=== PATIENT | male | born 1965 | race Caucasian/White ===

== ENCOUNTER 2022-11-01 08:38 | Day surgery (SDC) | payer OTHER ==
[~2022-11-01] VITALS: Ht 175.3 cm; Wt 98.8 kg
[2022-11-01] MEDS ORDERED: GABA100 (08:48)
[2022-11-01] MEDS ORDERED: METF500 (08:48)
[2022-11-01] MEDS ORDERED: BUPR75 (08:48)
[2022-11-01] MEDS ORDERED: FLUO10 (08:49)
[2022-11-01] MEDS ORDERED: SUMA5NI (08:50)
[2022-11-01] MEDS ORDERED: ATOR10 (08:50)
[2022-11-01] MEDS ORDERED: Hydrocodone Bita5 GM (08:51)
[2022-11-01] MEDS ORDERED: Cyclobenzaprine5 MG (08:51)
== END 2022-11-01 10:28 | disposition home or self-care (01) ==
LOC: ORSCSDS 08:38
PROVIDERS: Surgery
PROC: 0DJD8ZZ Inspection of Lower Intestinal Tract, Via Natural or Artificial Opening Endoscopic (ICD-10-PCS; principal; 2022-11-01 09:45)
DX: Z12.11 Encounter for screening for malignant neoplasm of colon (principal); Z86.010 Personal history of colon polyps; E11.9 Type 2 diabetes mellitus without complications; F41.8 Other specified anxiety disorders; E78.5 Hyperlipidemia, unspecified; F10.21 Alcohol dependence, in remission; Z87.891 Personal history of nicotine dependence; E66.9 Obesity, unspecified; Z68.33 Body mass index [BMI] 33.0-33.9, adult; Z79.84 Long term (current) use of oral hypoglycemic drugs; Z79.899 Other long term (current) drug therapy
CPT/HCPCS: 82947; J2704; J7120

== ENCOUNTER → 2023-06-03 | Outpatient (CLI) | payer OTHER ==
[~2023-06-03] MED LIST: ATOR10; BUPR75; Cyclobenzaprine5 MG; FLUO10; GABA100; Hydrocodone Bita5 GM; METF500; SUMA5NI
[2023-06-03 16:05] LABS: CHOL/HDL RATIO 3.5; Cholesterol 165 mg/dL (50-200); HDL Cholesterol 47 mg/dL (>39); LDL/HDL RATIO 1.6; Low Density Lipoprotein Chol 77 mg/dL (0-110); Triglycerides 203 mg/dL (30-160); Very Low Density Lipoprot Chol 40 mg/dL (6-32)
== END | disposition home or self-care (01) ==
LOC: LAB 11:14 → LAB SHORT 11:14
PROVIDERS: Student in an Organized Health Care Education/Training Program
DX: E78.5 Hyperlipidemia, unspecified (principal)
CPT/HCPCS: 80061

== ENCOUNTER 2023-11-10 16:54 | Emergency (ER) | payer OTHER ==
[~2023-11-10] VITALS: Ht 175.3 cm; Wt 99.8 kg
[2023-11-10 17:27] VITALS: BP 156/90
== END 2023-11-10 18:38 | disposition home or self-care (01) ==
LOC: ER 16:54
DX: I82.612 Acute embolism and thrombosis of superficial veins of left upper extremity (principal); E11.9 Type 2 diabetes mellitus without complications; Z79.84 Long term (current) use of oral hypoglycemic drugs; Z79.899 Other long term (current) drug therapy
CPT/HCPCS: 93971; 99283-25

== ENCOUNTER → 2024-04-16 | Outpatient (CLI) | payer OTHER ==
[2024-04-16 17:38] LABS: Bun/Creatinine Ratio 17.6 (12.0-20.0); Calcium, Blood 9.5 mg/dL (8.5-10.1); Creatinine, Blood 0.97 mg/dL (0.60-1.20); Potassium, Blood 3.9 mmol/L (3.5-5.5)
== END ==
LOC: LAB SHORT 16:00 → LAB 16:00
DX: E11.69 Type 2 diabetes mellitus with other specified complication (principal); E78.5 Hyperlipidemia, unspecified
CPT/HCPCS: 80048

== ENCOUNTER 2024-07-21 11:00 | Emergency (ER) | payer OTHER ==
[~2024-07-21] VITALS: Ht 175.3 cm; Wt 93.0 kg
[2024-07-21 11:31] VITALS: BP 146/103
[2024-07-21] MEDS ORDERED: NS 1,000 ML IV SCH (11:55)
[2024-07-21] MEDS ORDERED: Ketorolac Tromethamine 15mg Vial IV ONE (11:55)
[2024-07-21] MEDS ORDERED: DiphenhydrAMINE HCl 50 MG/ML 1ML Vial IV ONE (11:55)
[2024-07-21] MEDS ORDERED: Prochlorperazine Edisylate 10 mg Vial IV ONE (11:55)
[2024-07-21 13:01] LABS: Influenza A, PCR NEGATIVE (NEGATIVE); Influenza B, PCR NEGATIVE (NEGATIVE); Resp Syncytial Virus, PCR NEGATIVE (NEGATIVE); SARS-Cov-2 (COVID-19) PCR, MMC NEGATIVE (NEGATIVE)
== END 2024-07-21 13:22 | disposition home or self-care (01) ==
LOC: ER 11:00
PROVIDERS: Physician Assistant
DX: R51.9 Headache, unspecified (principal); E11.9 Type 2 diabetes mellitus without complications; Z79.84 Long term (current) use of oral hypoglycemic drugs; Z79.899 Other long term (current) drug therapy
CPT/HCPCS: 0241U; 96361; 96374; 96375; 99284; 99284-25; J0780; J1200; J1885; J7030

== ENCOUNTER → 2025-06-29 | Outpatient (CLI) | payer OTHER ==
[2025-06-29 21:01] LABS: Creatinine, Urine Random 114.0 mg/dL (27.00-270.00); Protein, Urine Random 15.4 mg/dL (0.0-11.9); Protein/Creat Ratio, Ur Random 0.1
== END ==
LOC: LAB 13:50 → LAB SHORT 13:50
DX: E11.9 Type 2 diabetes mellitus without complications (principal)
CPT/HCPCS: 82570; 84156